=== PATIENT | male | born 1965 | race Caucasian/White ===

== ENCOUNTER 2019-07-24 18:37 | Emergency (ER) | payer BC ==
[2019-07-24] MEDS ORDERED: Diphtheria,Pertussis(Acell),Tetanus Vaccine 0.5 ML SDV inactive IM ONE (19:47)
--- NOTE | 2019-07-24 19:53 | EDM.PDOC ---
ED HPI GENERAL MEDICAL PROBLEM - General Stated Complaint: FISH HOOK IN FACE Time Seen by Provider: 07/24/19 18:37 Source of Information: Reports: Patient History Limitations: Reports: No Limitations - History of Present Illness INITIAL COMMENTS - FREE TEXT/NARRATIVE: Sid presents with a trouble hook embedded in his face. He states he had a really hot lower, he caught a couple of fish the last 1 being small, and then shaking it off his albert snapped back and the hook impaled in his face. They cut it off leaving the travel part intact. He really has no significant pain but is relatively uncomfortable. He is getting ready for tournament, and excited [place]. He really has no idea when his last tetanus was. Left Cheek Pain Score (Numeric/FACES): 3 - Related Data Allergies Allergy/AdvReac Type Severity Reaction Status Date / Time No Known Allergies Allergy Verified 07/24/19 20:11 Home Meds: Home Meds . [Unable to Verify Home Med List] 07/24/19 [History] ED ROS GENERAL - Review of Systems Review Of Systems: See Below ED EXAM, GENERAL - Physical Exam Exam: See Below Free Text/Narrative:: Sid presents with a trouble hook embedded in his face. He had a hot lower, caught a couple fish, and was somewhat hesitant and shaking off the last fish that was small. His right hip snapped back, and the lower embedded a trouble hook in his left cheek. He had no other injuries. He is unsure of his last tetanus. [place] is [place], as he has a tournament in the next couple of days. Exam Limited By: No Limitations General Appearance: Alert, WD/WN, No Apparent Distress Eye Exam: Bilateral Eye: EOMI Ears: Normal External Exam, Other (hearing aides) Throat/Mouth: Normal Oropharynx, Normal Voice, No Airway Compromise Head: Atraumatic, Normocephalic Neck: Normal Inspection, Supple, Full Range of Motion Respiratory/Chest: No Respiratory Distress Extremities: Normal Inspection, Normal Range of Motion, Normal Capillary Refill Neurological: Alert, Oriented, CN II-XII Intact, No Motor/Sensory Deficits Skin Exam: Warm, Dry, Other (Treble hook was eventually cut into individual hallux due to inability to disengage the jeffry with 18-gauge needle after combination of 3 mL's lidocaine with epinephrine and plain bupivacaine at 7 mL' s using a 10-gauge syringe and a 27 inch and 1/2 inch needle to provide local anesthesia. Eventually the 2 individual hooks were removed after the barbs disengaged with a fair amount of force actually applied to back them out through the original hole. This was copiously irrigated by my experience RN who also provided him with an updated Tdap. Precautions were provided including the need for follow-up immediately in the rare event of any infection as well as some cosmetic concerns namely avoiding the sun given the possibility of more permanent increased skin pigmentation.) Course - Orders/Labs/Meds Orders: Active Orders 24 hr Category Date Time Status Vaccines to be Administered [RC] PER UNIT ROUTINE Care 07/24/19 19:47 Active Meds: Medications Discontinued Medications Generic Name Dose Route Start Last Admin Trade Name Freq PRN Reason Stop Dose Admin Diphtheria/Tetanus/Acell Pertussis 0.5 ml 07/24/19 19:47 Boostrix IM 07/24/19 19:48 .ONCE ONE Departure - Departure Time of Disposition: 19:55 Disposition: Home, Self-Care 01 Clinical Impression: Fish hook injury of cheek - Discharge Information Instructions: Wound Infection, [id number] Referrals: PCP,None [Primary Care Provider] - Additional Instructions: Keep affected area clean and dry. Watch for signs and symptoms of infection as instructed. Follow up if needed. Call with any questions. Sepsis Event Note - Focused Exam Date Exam was Performed: 07/24/19 Time Exam was Performed: 21:19 - My Orders Last 24 Hours: My Active Orders 07/24/19 19:47 Vaccines to be Administered [RC] PER UNIT ROUTINE - Assessment/Plan Last 24 Hours: My Active Orders 07/24/19 19:47 Vaccines to be Administered [RC] PER UNIT ROUTINE
== END 2019-07-24 19:55 | disposition home or self-care (01) ==
LOC: LB.ED 18:37
DX: S00.85XA Superficial foreign body of other part of head, initial encounter (principal); Z23 Encounter for immunization; W45.8XXA Other foreign body or object entering through skin, initial encounter
CPT/HCPCS: 10120; 90471; 90715; 99282; 99282-25